=== PATIENT | male | born 1970 | race Caucasian/White ===

== ENCOUNTER 2018-12-06 10:45 | Outpatient (CLI) | payer OTHER ==
[2018-12-06 18:49] LABS: ALBUMIN 4.6 g/dL (3.2-5.5); ALBUMIN/GLOBULIN RATIO 1.3 (1.0-2.2); ALKALINE PHOSPHATASE 61 IU/L (42-121); ALT ALANINE AMINOTRANSFERASE 17 IU/L (10-60); AST ASPARTATE AMINOTRANSFERASE 20 IU/L (10-42); BILIRUBIN,TOTAL 0.8 mg/dL (0.2-1.0); BUN - BLOOD UREA NITROGEN 23 mg/dL (6-20); CALCIUM 9.4 mg/dL (8.5-10.3); CARBON DIOXIDE - CO2 28 mmol/L (21-32); CHLORIDE 99 mmol/L (101-111); CHOL/HDL RATIO 5.3 (<5.0); CHOLESTEROL 232 mg/dL; GFR - MDRD 80 (>89); GLUCOSE 98 mg/dL (70-100); HDL CHOLESTEROL 44 mg/dL; LDL CHOLESTEROL,CALCULATED 169 mg/dL; LDL/HDL RATIO 3.8 (<3.6); SODIUM 136 mmol/L (135-145); TOTAL PROTEIN 8.1 g/dL (6.7-8.2); VLDL CHOLESTEROL 19 mg/dL
== END 2018-12-06 10:46 | disposition home or self-care (01) ==
LOC: LAB.F 10:45
PROVIDERS: ATTEND Internal Medicine
DX: I10 Essential (primary) hypertension (principal)
CPT/HCPCS: 36415; 80053; 80061; 83721

== ENCOUNTER 2020-06-30 08:43 | Outpatient (CLI) | payer OTHER ==
--- NOTE | 2020-06-30 12:18 | MRI Report ---
PROCEDURE: Foot LT W/O INDICATIONS: INJURY LT 2ND TOE, PAIN IN LT FOOT TECHNIQUE: Noncontrast sagittal, long axis, and short axis T1 spin echo and T2 fast spin echo with fat saturatio n through the forefoot. COMPARISON: None. FINDINGS: Image quality: Excellent. Bones and joints: Moderate degenerative changes are seen at the first metatarsophalangeal joint with full-thickness cartilage loss, subchondral edema, and marginal osteophyte formation. Mild degenerati ve changes are also seen at the metatarsal sesamoid articulations and there are mild scattered degene rative changes in the interphalangeal joints. No intraosseous lesions. Soft tissues: There is mild increased signal in the lateral collateral ligament at the second metata rsophalangeal joint near its distal insertion onto the base of the second proximal phalanx with assoc iated osseous edema and surrounding soft tissue edema (image 11 of series 701). No definite discontin uity of the ligament fibers is seen. Findings are suspicious for a grade 1-2 sprain. Soft tissue bell a extends into the lateral part of the second toe and along the dorsum of the foot overlying the dist al second and third metacarpals. The visualized plantar foot muscles demonstrate normal signal and bu lk. Visualized flexor and extensor tendons appear intact, without tenosynovitis. Sagittal images de monstrate no evidence for plantar plate tears. IMPRESSION: 1. Grade 1-2 sprain/low-grade partial tear of the distal portion of the lateral collateral collatera l ligament at the second metatarsophalangeal joint with mild traction edema at the base of the second proximal phalanx and surrounding soft tissue edema. 2. Moderate first metatarsophalangeal joint osteoarthrosis. Reviewed by: Serjio Tenorio MD on 06/30/2020 12:17 PM PST Approved by: Serjio Tenorio MD on 06/30/2020 12:17 PM PST Station ID: [id number]
== END 2020-06-30 08:44 | disposition home or self-care (01) ==
LOC: DI 08:43
PROVIDERS: ATTEND Podiatrist
DX: S93.525A Sprain of metatarsophalangeal joint of left lesser toe(s), initial encounter (principal); M19.072 Primary osteoarthritis, left ankle and foot

== ENCOUNTER 2021-09-20 11:52 | Outpatient (CLI) | payer OTHER ==
--- NOTE | 2021-09-20 15:22 | XRAY Report ---
PROCEDURE: Knee 3 View LT INDICATIONS: L KNEE PX TECHNIQUE: 3 views of the left knee(s) were acquired. COMPARISON: None. FINDINGS: Bones: No fractures or dislocations. No suspicious bony lesions. Soft tissues: No joint effusion. No suspicious soft tissue calcifications. IMPRESSION: No acute fracture. No osseous lesion. If symptoms and/or clinical suspicion for patholog y continue, further assessment with repeat plain films, or advanced imaging (e.g., CT, MRI, or bone s can) is recommended for further assessment. Reviewed by: Kg Shaw MD on 09/20/2021 3:21 PM PST Approved by: Kg Shaw MD on 09/20/2021 3:21 PM PST Station ID: [id number]
== END 2021-09-20 23:59 | disposition home or self-care (01) ==
LOC: DI.N 11:52
PROVIDERS: ATTEND Registered Nurse
DX: M25.562 Pain in left knee (principal); M79.662 Pain in left lower leg

== ENCOUNTER 2021-10-14 07:10 | Outpatient (CLI) | payer OTHER ==
--- NOTE | 2021-10-14 12:50 | MRI Report ---
PROCEDURE: Knee LT W/O INDICATIONS: LEFT KNEE PAIN TECHNIQUE: Noncontrast sagittal PD fast spin echo and T2 fast spin echo with fat saturation, sagittal 3-D gradie nt sequence with fat saturation; coronal T1 spin echo and PD fast spin echo with fat saturation, and axial PD fast spin echo with fat saturation through the knee. COMPARISON: None. FINDINGS: Image quality: Excellent. Menisci: The medial and lateral menisci demonstrate normal morphology and internal signal. The meni scal root ligaments appear intact. Cruciate ligaments: There is suggestion of moderate to high-grade partial thickness tear involving mi d to distal ACL near its tibial insertion. A few intact fibers are noted extending along expected cou rse of ACL. PCL is intact. Medial structures: Moderate to high-grade MCL sprain/partial thickness tear is seen near its femoral insertion. The posterior oblique ligament, semimembranosus tendon insertions, and oblique popliteal l igament, and meniscocapsular junction appear intact. Visualized portions of the pes anserinus tendon s appear normal. No abnormal bursal fluid. Lateral structures: The lateral collateral ligament, long and short heads of the biceps femoris tend on appear intact. The popliteus tendon appears normal; the popliteofibular ligament appears intact. The posterosuperior and anteroinferior popliteomeniscal fascicles appear intact. The arcuate and fa bellofibular ligaments appear intact, around the lateral inferior geniculate artery. Iliotibial band appears normal. Anterior structures: The quadriceps and patellar tendons appear intact. Patellar alignment is aston l. No femoral trochlear dysplasia or ventral trochlear prominence. No edema in the infrapatellar fa t pad. Bones and cartilage: There is marrow edema involving medial periphery of medial femoral condyle and p osterior and lateral aspect of proximal tibia extending to posterior aspect of lateral tibial plateau . No discrete fracture line is identified. Edema in adjacent fibular head is also seen without defini te fracture line. The cartilage of the medial and lateral femorotibial compartments, as well as the p atellofemoral compartment, appears normal in thickness. Joint space: There is moderate joint effusion. Lobulated popliteal cyst is noted measures up to 3.1 x 2.3 x 5.1 cm in size. Normal appearing synovial plicae are incidentally noted. IMPRESSION: 1. Moderate to high-grade partial thickness tear involving mid to distal ACL near its tibial insertio n. No definite full-thickness ACL rupture is seen. PCL is intact. 2. Bony contusion involving medial periphery of medial femoral condyle and posterior and lateral aspe ct of proximal tibia extending to posterior aspect of lateral tibial plateau. Bony contusion also see n in adjacent fibular head. No definite fracture or dislocation. 3. Moderate to high-grade proximal MCL partial thickness tear near its femoral insertion. 4. Moderate joint effusion and lobulated popliteal cyst as above. Reviewed by: Jay Mccollum MD on 10/14/2021 12:49 PM PST Approved by: Jay Mccollum MD on 10/14/2021 12:49 PM PST Station ID: [id number]
== END 2021-10-14 07:11 | disposition home or self-care (01) ==
LOC: DI 07:10
PROVIDERS: ATTEND Registered Nurse
DX: S83.512A Sprain of anterior cruciate ligament of left knee, initial encounter (principal); S80.02XA Contusion of left knee, initial encounter; S83.412A Sprain of medial collateral ligament of left knee, initial encounter; M25.462 Effusion, left knee; M71.22 Synovial cyst of popliteal space [Baker], left knee

== ENCOUNTER 2021-10-19 08:00 | Outpatient (CLI) | payer OTHER ==
--- NOTE | 2021-10-19 11:47 | XRAY Report ---
PROCEDURE: Knee 3 View LT INDICATIONS: Knee pain TECHNIQUE: 3 views of the left knee COMPARISON: None. FINDINGS: Bilateral osteoarthritic changes in the knees, moderate right and mild on the left. Changes are kali cterized by medial femorotibial compartment joint space narrowing as well as osteophytosis. Findings are considerably more pronounced on the right. IMPRESSION: Moderate right and mild left knee osteoarthritis. Reviewed by: Nicolas Mario MD on 10/19/2021 11:46 AM PST Approved by: Nicolas Mario MD on 10/19/2021 11:46 AM PST Station ID: [id number]
== END 2021-10-19 23:59 ==
LOC: DI.WOS 08:00
PROVIDERS: ATTEND Orthopaedic Surgery
DX: M17.12 Unilateral primary osteoarthritis, left knee (principal)